=== PATIENT | male | born 1960 | race African-American/Black ===

== ENCOUNTER → 2020-09-14 | Outpatient (CLI) | payer BC | LOC: RAD 11:09 | PROVIDERS: ATTEND Internal Medicine | DX: I13.10 Hypertensive heart and chronic kidney disease without heart failure, with stage 1 through stage 4 chronic kidney disease, or unspecified chronic kidney disease (principal) | CPT/HCPCS: 71046 ==

== ENCOUNTER → 2021-03-24 | Outpatient (CLI) | payer BC | LOC: MRI 11:32 | PROVIDERS: ATTEND Internal Medicine | DX: M54.50 Low back pain, unspecified (principal); M54.16 Radiculopathy, lumbar region | CPT/HCPCS: 72148 ==